=== PATIENT | male | born 1990 | race Caucasian/White ===

== ENCOUNTER 2018-06-07 09:51 | Day surgery (SDC) | payer OTHER ==
[2018-06-07] MEDS ORDERED: NS 1,000 ML IV ONE (10:19)
[2018-06-07] MEDS ORDERED: ONDANSETRON 4 MG/2 ML VIAL IVP ONE (10:19)
--- NOTE | 2018-06-07 10:23 | EDPHY ---
H & P Time Seen by Provider: 06/07/18 10:15 HPI/ROS: CHIEF COMPLAINT: Abdominal pain, HISTORY OF PRESENT ILLNESS: The patient is a 27-year-old male who presents emergency department after waking 4:00 a.m. This morning with abdominal discomfort, nausea vomiting. Patient states he has had 5 episodes of nonbloody emesis. He primarily describes his pain in the epigastric region but does moved to his right lower quadrant. He has had no diarrhea. No fevers or chills. No recent trauma or fall. REVIEW OF SYSTEMS: 10 systems were reveiwed and are negative with the exception of the elements mentioned in the history of present illness. Past Medical/Surgical History: Negative Past surgical history: Negative Social history: Patient does not smoke. He denies recent alcohol use. Smoking Status: Never smoked Physical Exam: Vitals noted GENERAL: Moderate acute distress, alert. HEENT: Eyes normal to inspection, normal pharynx, no signs of dehydration. NECK: Normal, supple. RESPIRATORY: Clear to auscultation bilaterally, no rales, rhonchi or wheezing. CVS: Regular rate and rhythm, no rubs, murmurs, or gallops. ABDOMEN: Soft, epigastric tenderness to palpation > right lower quadrant tenderness palpation, nondistended, no organomegaly. BACK: Normal to inspection, no CVA tenderness. SKIN: Normal color, no rash, warm, dry. No pallor. EXTREMITIES: No pedal edema, no calf tenderness, no Homans sign or cords, no joint swelling. NEURO/PSYCH: Alert and oriented, normal mood and affect, normal motor sensory exam. Constitutional: Initial Vital Signs Temperature (C) 36.3 C 06/07/18 09:57 Heart Rate 67 06/07/18 09:57 Respiratory Rate 18 06/07/18 09:57 Blood Pressure 140/94 H 06/07/18 09:57 O2 Sat (%) 100 06/07/18 09:57 O2 Delivery Mode Room Air Allergies/Adverse Reactions: diphenhydramine [From Triaminic Allergy] Allergy (Verified 06/07/18 09:56) Home Medications: Medication Instructions Recorded NK [No Known Home Meds] 06/07/18 Medical Decision Making - Diagnostics Imaging Results: Imaging Impressions Abdomen Ultrasound 06/07/18 10:24 Impression: Sonographic findings consistent with acute appendicitis. Findings were discussed with HELEN PENA MD at 12:06, on 06/07/2018. ED Course/Re-evaluation: In the emergency department I discussed possible etiologies with the patient. I answered all his questions. IV was placed. He is given 1 L of normal saline for hydration. Given Zofran 4 mg IV for nausea. Laboratory studies and ultrasound [place] [id number]. Chemistry panel is unremarkable. Patient states his nausea is improved. He was still having abdominal discomfort. He was given fentanyl 100 mcg IV. On recheck the patient continued to have right lower quadrant pain. Ultrasound: Please refer the dictated report. The patient has positive appendicitis. I discussed the result with the patient and friend. I answered all questions. I discussed the case with Dr. Vail. Patient was given cefepime 2 g IV. Patient states he last ate a piece of toast at around 8:00 a.m.. Differential Diagnosis: My differential includes but is not limited to gastroenteritis, viral illness, appendicitis, pancreatitis, cholecystitis, small-bowel obstruction, perforation - Data Points Laboratory Results: Laboratory Results 06/07/18 10:17 06/07/18 10:17 06/07/18 06/07/18 10:17 10:17 WBC 13.58 10^3/uL H 10^3/uL (3.80-9.50) RBC 5.32 10^6/uL 10^6/uL (4.40-6.38) Hgb 14.8 g/dL g/dL (13.7-17.5) Hct 43.0 % % (40.0-51.0) MCV 80.8 fL L fL (81.5-99.8) MCH 27.8 pg L pg (27.9-34.1) MCHC 34.4 g/dL g/dL (32.4-36.7) RDW 12.9 % % (11.5-15.2) Plt Count 285 10^3/uL 10^3/uL (150-400) MPV 10.2 fL fL (8.7-11.7) Neut % (Auto) 84.9 % H % (39.3-74.2) Lymph % (Auto) 9.7 % L % (15.0-45.0) [place] % (Auto) 4.6 % % (4.5-13.0) Eos % (Auto) 0.1 % L % (0.6-7.6) Baso % (Auto) 0.4 % % (0.3-1.7) Nucleat RBC Rel Count 0.0 % % (0.0-0.2) Absolute Neuts (auto) 11.54 10^3/uL H 10^3/uL (1.70-6.50) Absolute Lymphs (auto) 1.32 10^3/uL 10^3/uL (1.00-3.00) Absolute Monos (auto) 0.62 10^3/uL 10^3/uL (0.30-0.80) Absolute Eos (auto) 0.01 10^3/uL L 10^3/uL (0.03-0.40) Absolute Basos (auto) 0.05 10^3/uL 10^3/uL (0.02-0.10) Absolute Nucleated RBC 0.00 10^3/uL 10^3/uL (0-0.01) Immature Gran % 0.3 % % (0.0-1.1) Immature Gran # 0.04 10^3/uL 10^3/uL (0.00-0.10) Sodium 135 mEq/L mEq/L (135-145) Potassium 4.5 mEq/L mEq/L (3.5-5.2) Chloride 105 mEq/L mEq/L (97-110) Carbon Dioxide 21 mEq/l L mEq/l (22-31) Anion Gap 9 mEq/L mEq/L (6-14) BUN 13 mg/dL mg/dL (7-23) Creatinine 0.8 mg/dL mg/dL (0.7-1.3) Estimated GFR > 60 Glucose 120 mg/dL H mg/dL (70-100) Calcium 10.4 mg/dL mg/dL (8.5-10.4) Total Bilirubin 0.7 mg/dL mg/dL (0.1-1.4) Conjugated Bilirubin 0.3 mg/dL mg/dL (0.0-0.5) Unconjugated Bilirubin 0.4 mg/dL mg/dL (0.0-1.1) AST 36 IU/L IU/L (17-59) ALT 43 IU/L IU/L (21-72) Alkaline Phosphatase 126 IU/L IU/L (38-126) Total Protein 8.1 g/dL g/dL (6.3-8.2) Albumin 4.7 g/dL g/dL (3.5-5.0) Lipase 67 IU/L IU/L (23-300) Medications Given: Discontinued Medications Fentanyl (Sublimaze) 100 mcg IVP EDNOW ONE Stop: 06/07/18 10:51 Last Admin: 06/07/18 10:54 Dose: 100 mcg Sodium Chloride (Ns) 1,000 mls @ 0 mls/hr IV ONCE ONE; Wide Open PRN Reason: Protocol Stop: 06/07/18 10:20 Last Admin: 06/07/18 10:22 Dose: 1,000 mls Ketorolac Tromethamine (Toradol) 30 mg IVP EDNOW ONE Stop: 06/07/18 10:58 Last Admin: 06/07/18 11:13 Dose: 30 mg Ondansetron HCl (Zofran) 4 mg IVP EDNOW ONE Stop: 06/07/18 10:20 Last Admin: 06/07/18 10:22 Dose: 4 mg Departure - Departure Disposition: [facility] Inpatient Acute Clinical Impression: Abdominal pain Qualifiers: Abdominal location: generalized Qualified Code(s): R10.84 - Generalized abdominal pain Appendicitis Qualifiers: Appendicitis type: acute appendicitis Acute appendicitis type: other Qualified Code(s): K35.890 - Other acute appendicitis without perforation or gangrene Condition: Good Referrals: NONE *PRIMARY CARE P,. [Primary Care Provider] - As per Instructions
[2018-06-07 10:31] LABS: PLATELET COUNT 285 10^3/uL (150-400)
[2018-06-07] MEDS ORDERED: fentaNYL 100 MCG/2 ML INJ IVP ONE (10:50)
[2018-06-07] MEDS ORDERED: KETOROLAC 30 MG/1 ML SDV IVP ONE (10:57)
[2018-06-07] MEDS ORDERED: CEFEPIME HCL 2 GM in NS 100 ML IV ONE (12:32)
[2018-06-07] MEDS ORDERED: MIDAZOLAM 2 MG/2 ML VIAL IVP ONE (12:42)
--- NOTE | 2018-06-07 12:42 | PDANEPAE ---
ANE History of Present Illness Laparoscopic appendectomy ANE Past Medical History - Pulmonary History Hx Oxygen in Use at Home: No - Endocrine History Hx Diabetes: No ANE Review of Systems Review of systems is: negative Review of Systems: - Exercise capacity Exercise capacity: >=4 METS ANE Patient History - Allergies Allergies/Adverse Reactions: diphenhydramine [From Triaminic Allergy] Allergy (Verified 06/07/18 09:56) - Home Medications Home medications: home medication list seen and reviewed Home Medications: NK [No Known Home Meds] 06/07/18 [Last Taken Unknown] - NPO status NPO Since - Solids (Date): 06/07/18 NPO Since - Solids (Time): 08:00 - Anes Hx Anes Hx: no prior problems - Smoking Hx Smoking Status: Never smoked - Family Anes Hx Family Anes Hx: none ANE Labs/Vital Signs - Labs Result Diagrams: 06/07/18 10:17 06/07/18 10:17 - Vital Signs Vital Signs: reviewed preoperatively; see RN documention for details Blood Pressure: 133/77 Heart Rate: 62 Respiratory Rate: 20 O2 Sat (%): 100 Height: 182.88 cm Weight: 81.647 kg ANE Physical Exam - Airway Neck exam: FROM Mallampati Score: Class 1 Mouth exam: normal dental/mouth exam - Pulmonary Pulmonary: no respiratory distress - Cardiovascular Cardiovascular: regular rate and rhythym - ASA Status ASA Status: I, E ANE Anesthesia Plan Anesthesia Plan: general endotracheal anesthesia (RSI) Urgent/Emergent Case: Sebas dillon completed preop but documented later for safe timely pt care
--- NOTE | 2018-06-07 12:52 | PDGENHP ---
History and Physical - Chief Complaint abdominal pain - History of Present Illness 27 y/o male awoke at 0400 with abd pain, nausea and emesis. Pain is localized to the RLQ and feels better after receiving IV Fentanyl in the ED. Ultrasound shows findings suspicious for appendicitis. 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[employer]) Review of Systems Review of Systems: Constitutional: Reports: malaise, recent illness Respiratory: Reports: no symptoms Gastrointestinal: Reports: vomitting, abdominal pain Genitourinary: Reports: no symptoms Physical Exam Physical Exam: Temp Pulse Resp BP Pulse Ox 36.3 C 62 20 133/77 H 100 06/07/18 09:57 06/07/18 12:42 06/07/18 12:42 06/07/18 12:42 06/07/18 12:42 Constitutional: no apparent distress Eyes: anicteric sclera Cardiovascular: regular rate and rhythym Respiratory: no respiratory distress, clear to auscultation Gastrointestinal: other (hypoactive bowel sounds, tender RLQ with guarding) Genitourinary: no bladder fullness Skin: warm Lab Data & Imaging Review 06/07/18 10:17 06/07/18 10:17 WBC 13.58 10^3/uL (3.80-9.50) H 06/07/18 10:17 RBC 5.32 10^6/uL (4.40-6.38) 06/07/18 10:17 Hgb 14.8 g/dL (13.7-17.5) 06/07/18 10:17 Hct 43.0 % (40.0-51.0) 06/07/18 10:17 MCV 80.8 fL (81.5-99.8) L 06/07/18 10:17 MCH 27.8 pg (27.9-34.1) L 06/07/18 10:17 MCHC 34.4 g/dL (32.4-36.7) 06/07/18 10:17 RDW 12.9 % (11.5-15.2) 06/07/18 10:17 Plt Count 285 10^3/uL (150-400) 06/07/18 10:17 MPV 10.2 fL (8.7-11.7) 06/07/18 10:17 Neut % (Auto) 84.9 % (39.3-74.2) H 06/07/18 10:17 Lymph % (Auto) 9.7 % (15.0-45.0) L 06/07/18 10:17 [place] % (Auto) 4.6 % (4.5-13.0) 06/07/18 10:17 Eos % (Auto) 0.1 % (0.6-7.6) L 06/07/18 10:17 Baso % (Auto) 0.4 % (0.3-1.7) 06/07/18 10:17 Nucleat RBC Rel Count 0.0 % (0.0-0.2) 06/07/18 10:17 Absolute Neuts (auto) 11.54 10^3/uL (1.70-6.50) H 06/07/18 10:17 Absolute Lymphs (auto) 1.32 10^3/uL (1.00-3.00) 06/07/18 10:17 Absolute Monos (auto) 0.62 10^3/uL (0.30-0.80) 06/07/18 10:17 Absolute Eos (auto) 0.01 10^3/uL (0.03-0.40) L 06/07/18 10:17 Absolute Basos (auto) 0.05 10^3/uL (0.02-0.10) 06/07/18 10:17 Absolute Nucleated RBC 0.00 10^3/uL (0-0.01) 06/07/18 10:17 Immature Gran % 0.3 % (0.0-1.1) 06/07/18 10:17 Immature Gran # 0.04 10^3/uL (0.00-0.10) 06/07/18 10:17 Sodium 135 mEq/L (135-145) 06/07/18 10:17 Potassium 4.5 mEq/L (3.5-5.2) 06/07/18 10:17 Chloride 105 mEq/L (97-110) 06/07/18 10:17 Carbon Dioxide 21 mEq/l (22-31) L 06/07/18 10:17 Anion Gap 9 mEq/L (6-14) 06/07/18 10:17 BUN 13 mg/dL (7-23) 06/07/18 10:17 Creatinine 0.8 mg/dL (0.7-1.3) 06/07/18 10:17 Estimated GFR > 60 06/07/18 10:17 Glucose 120 mg/dL (70-100) H 06/07/18 10:17 Calcium 10.4 mg/dL (8.5-10.4) 06/07/18 10:17 Total Bilirubin 0.7 mg/dL (0.1-1.4) 06/07/18 10:17 Conjugated Bilirubin 0.3 mg/dL (0.0-0.5) 06/07/18 10:17 Unconjugated Bilirubin 0.4 mg/dL (0.0-1.1) 06/07/18 10:17 AST 36 IU/L (17-59) 06/07/18 10:17 ALT 43 IU/L (21-72) 06/07/18 10:17 Alkaline Phosphatase 126 IU/L (38-126) 06/07/18 10:17 Total Protein 8.1 g/dL (6.3-8.2) 06/07/18 10:17 Albumin 4.7 g/dL (3.5-5.0) 06/07/18 10:17 Lipase 67 IU/L (23-300) 06/07/18 10:17 Visualized and Interpreted imaging results: Yes Interpretation: ultrasound shows dilated fluid filled non-compressible structure c/w appendicitis Assessment & Plan Assessment: Abdominal pain (Acute) Appendicitis (Acute) Plan: Discussed options and I recommended surgical removal over antibiotics alone We reviewed the procedure, risks and expected recovery. Informed consent was obtained. 2gm Cefoxitin ordered pre-op
[2018-06-07] MEDS ORDERED: BUPIVACAINE 0.25% 10 ML SDV ONE ×2 (12:54→13:55)
[2018-06-07] MEDS ORDERED: MIDAZOLAM 2 MG/2 ML VIAL ONE (13:03)
[2018-06-07] MEDS ORDERED: fentaNYL 250 MCG/5 ML INJ ONE (13:05)
[2018-06-07] MEDS ORDERED: SUGAMMADEX SODIUM 200 MG/2 ML VIAL IVP ONE (13:05)
[2018-06-07] MEDS ORDERED: DEXAMETHASONE 4 MG/ML VIAL ONE (13:05)
[2018-06-07] MEDS ORDERED: PROPOFOL 200 MG/20 ML VIAL ONE (13:05)
[2018-06-07] MEDS ORDERED: ROCURONIUM 50 MG/5 ML VIAL ONE (13:05)
[2018-06-07] MEDS ORDERED: LIDOCAINE 2% 100 MG/5 ML SYR ONE (13:05)
[2018-06-07] MEDS ORDERED: ONDANSETRON 4 MG/2 ML VIAL ONE ×3 (13:05→16:47)
[2018-06-07] MEDS ORDERED: ACETAMINOPHEN 500 MG TAB PO PRN (13:35)
[2018-06-07] MEDS ORDERED: PROMETHAZINE HCL 25 MG/ML INJ IVP PRN (13:35)
[2018-06-07] MEDS ORDERED: fentaNYL 100 MCG/2 ML INJ IVP PRN (13:35)
[2018-06-07] MEDS ORDERED: MEPERIDINE 25 MG/0.5 ML AMP IVP PRN (13:35)
[2018-06-07] MEDS ORDERED: oxyCODONE IR 5 MG TAB PO PRN (13:35)
[2018-06-07] MEDS ORDERED: NALOXONE HCL 0.4 MG/ML INJ IVP PRN (13:35)
[2018-06-07] MEDS ORDERED: DEXAMETHASONE 4 MG/ML VIAL IVP PRN (13:35)
[2018-06-07] MEDS ORDERED: HYDROmorphONE/DILAUDID 2 MG/ML INJ IVP PRN (13:35)
--- NOTE | 2018-06-07 13:37 | POSTANESTH ---
Post Anesthetic Evaluation Cardiovascular Status: Normal, Stable, Similar to Pre-Op Cond Respiratory Status: Normal, Stable, Similar to Pre-op Cond. Level of Consciousness/Mental Status: Can Participate in Eval, Mildly Sleepy, Arousable Pain Control: Adequate, Prn Tx Ordered Nausea/Vomiting Control: Adequate, Prn Tx Ordered Complications Possibly Related to Anesthesia: None Noted
[2018-06-07] MEDS ORDERED: KETOROLAC 30 MG/1 ML SDV ONE (13:44)
[2018-06-07] MEDS: ONDANSETRON 4 MG/2 ML VIAL IVP PRN ×2 (14:34→16:50)
--- NOTE | 2018-06-07 14:39 | POSTOPPROG ---
Post Op Note Date of Operation: 06/07/18 Surgeon: Raudel Vail (, FACS) Anesthesiologist: Scout Anton MD Anesthesia: GET(General Endotracheal) Pre-op Diagnosis: appendicitis Procedure: lap appendectomy Findings: acute appendicitis Inf/Abcess present in the surg proc area at time of surgery?: Yes Depth: Organ Space EBL: Minimal (10 ml) Specimen(s): appendix
[2018-06-07] MEDS ORDERED: HYDROCODONE/APAP 5/325 TAB PO PRN (14:40)
[2018-06-07 17:12] VITALS: BP 132/77
--- NOTE | 2018-06-07 18:29 | GOP ---
DATE OF OPERATION: 06/07/2018 SURGEON: Raudel Vail MD, FACS ANESTHESIA: General endotracheal, Scout Anton MD. PREOPERATIVE DIAGNOSIS: Acute appendicitis. POSTOPERATIVE DIAGNOSIS: Acute appendicitis. PROCEDURE PERFORMED: Laparoscopic appendectomy. FINDINGS: Early appendicitis. No evidence of perforation or gangrene. ESTIMATED BLOOD LOSS: 10 cc or less. DESCRIPTION OF PROCEDURE: After informed consent was obtained, the patient was brought to the operating room and placed under general anesthesia. The abdomen was clipped, prepped, and draped in the usual fashion. Before proceeding, a time-out and identification of the patient was performed. The patient received preoperative cefepime intravenously. The infraumbilical skin was infiltrated with 0.25% Marcaine, incised transversely and dissection carried out down to the fascia. Hemostasis was secured with cautery. The ventral traction was applied to the abdominal wall and a Veress needle introduced into the peritoneal cavity. Position was confirmed by saline infusion. A pneumoperitoneum was established with CO2 gas to a pressure of 15 mmHg. The Veress needle was withdrawn and replaced with a 12 mm bladeless trocar. A 30-degree scope was introduced and the peritoneal cavity was visualized. Additional 5 mm ports were placed after additional 0.25 % Marcaine was infiltrated into the abdominal wall in the suprapubic and left lower quadrant area. This allowed introduction of atraumatic grasping forceps. The appendix was grasped and brought into the field. The mesoappendix was dispatched with a Harmonic Scalpel and the appendix from the cecum with a single firing of the Endo-STANLEY stapler. The appendix was retrieved through the 12 mm port site and submitted to pathology. Hemostasis appeared secure. The umbilical fascial defect was repaired with interrupted 0 Vicryl sutures using a transfascial closure needle. The pneumoperitoneum was evacuated. The remaining ports were removed. The subcutaneous tissues were approximated with 3-0 Monocryl suture. Skin was closed with 4-0 Monocryl suture in a subcuticular fashion. Topical Dermabond was applied. Patient was returned extubated to the recovery room in satisfactory condition. Needle, sponge, and instrument count were correct. COMPLICATIONS: None. /[id number]/MODL MTDD
[2018-06-07] MEDS ORDERED: SENNOSIDES/DOCUSATE SODIUM TAB PO SCH (21:00)
[2018-06-07] MEDS ORDERED: IBUPROFEN 600 MG TAB PO SCH (22:00)
== END 2018-06-07 17:25 | disposition home or self-care (01) ==
LOC: FSGY 12:32 → UNDOADMOB 12:32 → UNDODISOB 17:25 → FSGY 17:25
PROVIDERS: ATTEND Surgery
PROC: 0DTJ4ZZ Resection of Appendix, Percutaneous Endoscopic Approach (ICD-10-PCS; principal; 2018-06-07 14:00)
DX: K35.30 Acute appendicitis with localized peritonitis, without perforation or gangrene (principal); E86.9 Volume depletion, unspecified
CPT/HCPCS: 96374; J0692; J1100; J1885; J2001; J2250; J2405; J2704; J3010